=== PATIENT | male | born 1990 | race Caucasian/White ===

== ENCOUNTER 2017-03-27 19:46 | Emergency (ER) | payer OTHER ==
[~2017-03-27] VITALS: Ht 167.6 cm; Wt 63.0 kg
[~2017-03-27 19:46] MED LIST: ACET325T30 PO; B-CO1TAB29 PO; CHOL100010 PO; IBUP-1050 PO; NYST100098 TOP
[2017-03-27 19:48] VITALS: TEMP 36.8; Ht 167.6 cm; Wt 63.0 kg
[2017-03-27] MEDS ORDERED: SODIUM CHLORIDE 0.9% 1000ML 1,000 ML IV STA (20:08)
[2017-03-27] MEDS ORDERED: LORAZEPAM 2 MG/ML 1 ML VIAL IV STA (20:08)
[2017-03-27 20:15] LABS: BASO % 0.3 %; BASO ABS # 0.03 K/uL (0-0.2); COMPLETE YES; EOS % 2.3 %; HEMATOCRIT 48.4 % (42-52); IG% 0.1 %; LYMPH % 29.3 %; LYMPH ABS # 2.87 K/uL (1.2-3.4); MEAN CELL VOLUME 85.2 fL (80-100); MEAN CORPUSCULAR HEMOGLOBIN 30.5 pg (25-34); MEAN CORPUSCULAR HGB CONC 35.7 g/dl (32-36); MEAN PLATELET VOLUME 11.1 fL (7.4-10.4); PLATELET COUNT 253 K/uL (130-400); RED BLOOD COUNT 5.68 M/uL (4.7-6.1); WHITE BLOOD COUNT 9.79 K/uL (4.8-10.8)
--- NOTE | 2017-03-27 20:34 | EMERGENCY ROOM VISIT NOTE ---
History Report prepared by Florecita: Lissette Lee Under the Supervision of: Dr. Riley Whitaker M.D. First contact with patient: 20:02 Chief Complaint: STROKE SYMPTOMS Stated Complaint: STROKE History of Present Illness The patient is a 27 year old male who presents to the Emergency Room with complaints of worsening generalized stiffness that started this morning. The stiffness is worse with ambulating. He woke up with mild stiffness as well as a cough and rhinorrhea. The patient states that he developed numbness in his face and arms within the last two hours. The patient has spastic cerebral palsy and his is typically able to ambulate, but the stiffness has made it difficult to do so today. He denies fevers, sore throat, abdominal pain, vomiting, diarrhea, and urinary symptoms. The patient's mother states that the patient has a history of elevated CK levels and states that she would guess that it will be around 425. The patient was admitted to the hospital for similar symptoms several years ago. He denies starting any new medications recently. 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 Source of History: patient, parent (mother) Onset: this morning Position: other (global) Quality: other (generalized stiffness) Timing: worsening Modifying Factors (Worsening): movement (ambulating) Associated Symptoms: + numbness (face and arms), No abdominal pain, No diarrhea, No fevers, No sorethroat, No urinary symptoms, No vomiting Review of Systems See HPI for pertinent positives & negatives. A total of 10 systems reviewed and were otherwise negative. Past Medical & Surgical Medical Problems: (1) Bronchitis (2) Cerebral palsy Family History No pertinent family history Social History Alcohol Use: none Marital Status: single Housing Status: lives with family Occupation Status: unemployed Current/Historical Medications Scheduled Amoxicillin & Pot Clavulanate (Augmentin 875-125 mg), 875 MG PO BID Cholecalciferol (Vitamin D3), 4,000 INTER.UNIT PO DAILY Coenzyme Q10 (Ubidecarenone) (Co Q 10), 100 MG PO DAILY [Zinc/Mag/Amino], 3 TABS PO HS Scheduled PRN Dextromethorphan-Guaifenesin (Mucinex Dm), 1 TAB PO Q12 PRN for Cough/Congestion Allergies Coded Allergies: Morphine (Verified Allergy, Mild, HIVES, 03/22/13) HIVE/WELT AT INSERTION SITE WITH REDNESS IN SUROUNDING AREA Ciprofloxacin (Verified Allergy, contraindicated: , 03/22/13) Physical Exam Vital Signs Date Time Temp Pulse Resp B/P Pulse Ox O2 Delivery O2 Flow Rate FiO2 03/27/17 21:43 63 18 148/69 98 Room Air 03/27/17 20:37 98 Room Air 03/27/17 20:01 82 03/27/17 19:48 36.8 91 18 185/95 99 Room Air Physical Exam GENERAL: Patient is in no acute distress. HEENT: No acute trauma, normocephalic atraumatic, mucous membranes moist, no nasal congestion, no scleral icterus. NECK: No stridor, no adenopathy, no meningismus, trachea is midline. LUNGS: Clear to auscultation bilaterally, no wheeze, no rhonchi, breath sounds equal. HEART: Without murmurs gallops or rubs, regular rate and rhythm. ABDOMEN: Soft, nontender, bowel sounds positive, no hernias, no peritonitis. EXTREMITIES: No cyanosis or edema, full range of motion of all the joints without pain or difficulty, no signs for acute trauma. NEUROLOGIC: Wasting of muscles of lower extremities consistent with cerebral palsy, alert, oriented x3, no upper extremity deficits noted. SKIN: No rash, no jaundice, no diaphoresis. Medical Decision & Procedures ER Provider Diagnostic Interpretation: X-ray results as stated below per interpretation by me and the radiologist: CHEST ONE VIEW PORTABLE FINDINGS: Inhomogeneous appearing left cardiac border. Lungs otherwise are clear. Diaphragms are smooth. IMPRESSION: Minimal parenchymal infiltrate versus atelectasis left base. Electronically signed by: Mayur Thompson M.D. 03/27/2017 8:37 PM Dictated Date/Time: 03/27/2017 8:36 PM Laboratory Results 03/27/17 20:03 Red Blood Count 5.68, Mean Corpuscular Volume 85.2, Mean Corpuscular Hemoglobin 30.5, Mean Corpuscular Hemoglobin Concent 35.7, Mean Platelet Volume 11.1, Neutrophils (%) (Auto) 62.0, Lymphocytes (%) (Auto) 29.3, Monocytes (%) (Auto) 6.0, Eosinophils (%) (Auto) 2.3, Basophils (%) (Auto) 0.3, Neutrophils # (Auto) 6.06, Lymphocytes # (Auto) 2.87, Monocytes # (Auto) 0.59, Eosinophils # (Auto) 0.23, Basophils # (Auto) 0.03 03/27/17 20:03 Test 03/27/17 20:03 White Blood Count 9.79 K/uL (4.8-10.8) Red Blood Count 5.68 M/uL (4.7-6.1) Hemoglobin 17.3 g/dL (14.0-18.0) Hematocrit 48.4 % (42-52) Mean Corpuscular Volume 85.2 fL (80-100) Mean Corpuscular Hemoglobin 30.5 pg (25-34) Mean Corpuscular Hemoglobin Concent 35.7 g/dl (32-36) Platelet Count 253 K/uL (130-400) Mean Platelet Volume 11.1 fL (7.4-10.4) Neutrophils (%) (Auto) 62.0 % Lymphocytes (%) (Auto) 29.3 % Monocytes (%) (Auto) 6.0 % Eosinophils (%) (Auto) 2.3 % Basophils (%) (Auto) 0.3 % Neutrophils # (Auto) 6.06 K/uL (1.4-6.5) Lymphocytes # (Auto) 2.87 K/uL (1.2-3.4) Monocytes # (Auto) 0.59 K/uL (0.11-0.59) Eosinophils # (Auto) 0.23 K/uL (0-0.5) Basophils # (Auto) 0.03 K/uL (0-0.2) RDW Standard Deviation 38.3 fL (36.4-46.3) RDW Coefficient of Variation 12.3 % (11.5-14.5) Immature Granulocyte % (Auto) 0.1 % Immature Granulocyte # (Auto) 0.01 K/uL (0.00-0.02) Anion Gap 9.0 mmol/L (3-11) Est Creatinine Clear Calc Drug Dose 83.1 ml/min Estimated GFR () 96.1 Estimated GFR (Non- 83.0 BUN/Creatinine Ratio 12.4 (10-20) Calcium Level 9.0 mg/dl (8.5-10.1) Magnesium Level 2.3 mg/dl (1.8-2.4) Total Bilirubin 0.5 mg/dl (0.2-1) Aspartate Amino Transf (AST/SGOT) 32 U/L (15-37) Alanine Aminotransferase (ALT/SGPT) 56 U/L (12-78) Alkaline Phosphatase 68 U/L (45-117) Total Creatine Kinase 352 U/L (39-308) Troponin I < 0.015 ng/ml (0-0.045) Total Protein 7.9 gm/dl (6.4-8.2) Albumin 4.5 gm/dl (3.4-5.0) Globulin 3.4 gm/dl (2.5-4.0) Albumin/Globulin Ratio 1.3 (0.9-2) Thyroid Stimulating Hormone (TSH) 2.950 uIu/ml (0.300-4.500) Laboratory results reviewed by me. Medications Administered Medications (Trade) Dose Ordered Sig/Mariajose Route Start Time Stop Time Status Last Admin Dose Admin Sodium Chloride (Nss 1000ml) 1,000 ml @ 999 mls/hr Q1H1M STAT IV 03/27/17 20:08 03/27/17 21:08 DC 03/27/17 20:33 999 MLS/HR Lorazepam (Ativan Inj) 1 mg NOW STAT IV 03/27/17 20:08 03/27/17 20:10 DC 03/27/17 20:33 1 MG Amoxicillin/ Clavulanate Potassium (Augmentin Tab) 875 mg BID ONCE PO 03/28/17 09:00 03/28/17 09:00 DC 03/27/17 21:57 875 MG ECG Indication: other (arm numbness) Rate (beats per minute): 85 Rhythm: normal sinus Findings: no ectopy, other (T-wave flattening in the inferior and lateral leads ) Comparison ECG Date: 03/22/2013 Change: ST changes are new ED Course 2004: The patient was evaluated in room C7. A complete history and physical exam was performed. 2007: Ordered Ativan Inj 1 mg IV, Sodium Chloride 1000 ml @ 999 mls/hr IV 2130: Reevaluated the patient. Discussed results and discharge instructions: he verbalized understanding and agreement. The patient is ready for discharge. 0900: Ordered Augmentin tab 875 mg PO Medical Decision Differential diagnoses considered include dehydration, thyroid disorder, electrolyte imbalance, anemia, infection, dysrhythmia, rhabdomyolysis. There is no leukocytosis or concerning anemia. No significant electrolyte abnormality, kidney failure or hepatitis. The patient appears to be in a euthyroid state. Total CK is not consistent with rhabdomyolysis. EKG shows a normal sinus rhythm with some ST flattening, no acute TX. Cardiac enzyme testing times one is not consistent with acute cardiac injury. Chest x-ray shows a possible left base pneumonia. No mediastinal widening or pneumothorax. The patient did not have an exam consistent with stroke. His symptoms were bilateral and he described more of a numbness and tingling in his extremities than true weakness. The patient received IV saline, IV Ativan. He was given a dose of oral Augmentin for the suspected pneumonia. The patient presents with flulike symptoms, he actually may have an early pneumonia, this may have led to his other complaints, he has a history of similar complaints for which he has stayed in the hospital before. The somatic complaints during his hospital admission were thought secondary to hyperventilation. I do think the patient can be discharged home, he is doing well, he is not febrile or hypoxic. His symptoms have greatly improved with the Ativan and saline. I talked to the patient and his family at length. The patient will follow with his doctor's office, if worsening, he will return. Impression Primary Impression: Pneumonia Additional Impression: Numbness and tingling Scribe Attestation The scribe's documentation has been prepared under my direction and personally reviewed by me in its entirety. I confirm that the note above accurately reflects all work, treatment, procedures, and medical decision making performed by me. Departure Information Dispostion Home / Self-Care Prescriptions Amoxicillin & Pot Clavulanate (Augmentin 875-125 mg) 1 Tab Tab 875 MG PO BID for 7 Days, #14 TAB Prov: Riley Whitaker M.D. 03/27/17 Referrals Martinez Moy D.O. (PCP) Forms HOME CARE DOCUMENTATION FORM, IMPORTANT VISIT INFORMATION Patient Instructions My [facility] Additional Instructions fluids rest augmentin 2x per day for 1 week tylenol or advil for aches and fever follow with mayra greer this week return if worsening as we discussed use probiotic when you are on the augmentin no work for at least 2 days Problem Qualifiers Primary Impression: Pneumonia Pneumonia type: due to unspecified organism Laterality: left Lung location : lower lobe of lung Qualified Codes: J18.1 - Lobar pneumonia, unspecified organism
[2017-03-27 20:35] LABS: ALT/SGPT 56 U/L (12-78); AST/SGOT 32 U/L (15-37); BLOOD UREA NITROGEN 15 mg/dl (7-18); BUN/CREATININE RATIO 12.4 (10-20); CARBON DIOXIDE 28 mmol/L (21-32); CHLORIDE 105 mmol/L (98-107); GLUCOSE 188 mg/dl (70-99); MAGNESIUM 2.3 mg/dl (1.8-2.4); POTASSIUM 3.2 mmol/L (3.5-5.1); SODIUM 142 mmol/L (136-145)
[2017-03-27 20:37] VITALS: O2SAT 98
--- NOTE | 2017-03-27 20:38 | DIAGNOSTIC IMAGING REPORT ---
CHEST ONE VIEW PORTABLE CLINICAL HISTORY: EVALUATE ALTERED MENTAL STATUS/WEAKNESS dyspnea COMPARISON STUDY: 03/22/2013 FINDINGS: Inhomogeneous appearing left cardiac border. Lungs otherwise are clear. Diaphragms are smooth. IMPRESSION: Minimal parenchymal infiltrate versus atelectasis left base. Electronically signed by: Mayur Thompson M.D. 03/27/2017 8:37 PM Dictated Date/Time: 03/27/2017 8:36 PM
[2017-03-27 20:45] LABS: ALB/GLOB RATIO 1.3 (0.9-2); ALKALINE PHOSPHATASE 68 U/L (45-117)
[2017-03-27] MEDS ORDERED: ZINC PO (21:33)
[2017-03-27] MEDS ORDERED: COEN1CAP17 PO (21:33)
[2017-03-27] MEDS ORDERED: MAG PO (21:33)
[2017-03-27] MEDS ORDERED: AMINO PO (21:33)
[2017-03-27] MEDS ORDERED: CHOL2000 PO (21:33)
[2017-03-27] MEDS ORDERED: DEXT30TA7 PO (21:33)
[2017-03-27] MEDS ORDERED: AMOX875T PO (21:41)
[2017-03-27 21:43] VITALS: BP 148/69; PULSE 63; O2SAT 98
[2017-03-27] MEDS ORDERED: AMOXICILLIN/CLAVULANATE TAB 875 MG TAB PO ONE (21:55)
[2017-03-28] MEDS ORDERED: AMOXICILLIN/CLAVULANATE TAB 875 MG TAB PO ONE (09:00)
== END 2017-03-27 21:58 | disposition home or self-care (01) ==
LOC: C.EDB 19:48 → C.EDC 21:58
DX: J18.1 Lobar pneumonia, unspecified organism (principal); R20.0 Anesthesia of skin; R20.2 Paresthesia of skin; G80.9 Cerebral palsy, unspecified